=== PATIENT | male | born 1955 | race Caucasian/White ===

== ENCOUNTER 2016-03-22 18:05 | Emergency (ER) | payer MEDICARE, MEDICAID ==
[2016-03-22 20:02] VITALS: BP 117/78
--- NOTE | 2016-03-22 20:38 | UC ---
Ear Complaint HPI - HPI Summary HPI Summary: Pt is nonverbal, nonresponsive. Staff in detention noticed blood in L ear canal today, no known trauma. Deny using swabs in ear canal. - History of Current Complaint Chief Complaint: UCEar Stated Complaint: LEFT EAR INJURY Time Seen by Provider: 03/22/16 20:14 Hx Obtained From: Family/Channel Marketing Program Manager Hx From Patient Unobtainable Due To: Dementia Onset/Duration: Sudden Onset Severity Initially: Mild Severity Currently: Mild Aggravating Factors: Nothing Alleviating Factors: Nothing Associated Signs/Symptoms: Positive: Discharge - blood - Allergies/Home Medications Allergies/Adverse Reactions: Allergies Allergy/AdvReac Type Severity Reaction Status Date / Time Penicillins Allergy Unknown Verified 03/22/15 10:40 Reaction Details PMH/Surg Hx/FS Hx/Imm Hx Previously Healthy: No - CP Neurological History Of: Reports: Dementia, Seizures - Surgical History Surgical History: Yes Surgery Procedure, Year, and Place: TURP, Peg Tube - Family History Known Family History: Positive: Unknown - Social History Lives: [facility]iary Alcohol Use: None Substance Use Type: None Smoking Status (MU): Never Smoked Tobacco Review of Systems Constitutional: Negative Skin: Negative Eyes: Negative ENT: Other - blood in L ear canal Respiratory: Negative Cardiovascular: Negative Gastrointestinal: Negative Genitourinary: Negative Motor: Negative Neurovascular: Negative Musculoskeletal: Negative Neurological: Negative Psychological: Negative All Other Systems Reviewed And Are Negative: Yes Physical Exam Triage Information Reviewed: Yes Appearance: Well-Nourished Vital Signs: Initial Vital Signs Temp 98.0 F 03/22/16 19:59 Pulse 77 03/22/16 19:59 Resp 16 03/22/16 19:59 BP 117/78 03/22/16 19:59 Pulse Ox 94 03/22/16 19:59 Vital Signs Reviewed: Yes Eyes: Positive: Conjunctiva Clear ENT: Positive: Pharynx normal, TMs normal, Other: - blood in L ear canal. Negative: Nasal congestion, Nasal drainage Neck exam: Normal Neck: Positive: Supple Respiratory Exam: Normal Respiratory: Positive: Chest non-tender, Lungs clear, Normal breath sounds, No respiratory distress, No accessory muscle use Cardiovascular Exam: Normal Cardiovascular: Positive: RRR, No Murmur Neurological Exam: Other - contractures Skin Exam: Normal Ear Complaint Course/Dx - Differential Dx/Diagnosis Provider Diagnoses: L ear canal bleeding Discharge - Discharge Plan Condition: Stable Disposition: HOME Referrals: Anjelica Spencer PA [Physician Bookkeeper Receptionist] - 7 Days Additional Instructions: There was blood and a possible skin lesion in the L ear canal on exam tonight. Due to the amount of blood, I could not determine if the lesion was from injury or spontaneous. I recommend Chavez see his primary care office in 7-10 days to see if the canal has healed and to determine if Chavez needs to see an ENT.
== END 2016-03-22 20:45 | disposition home or self-care (01) ==
LOC: UCCORT 18:05
DX: H92.22 Otorrhagia, left ear (principal); F03.90 Unspecified dementia, unspecified severity, without behavioral disturbance, psychotic disturbance, mood disturbance, and anxiety; Z88.0 Allergy status to penicillin
CPT/HCPCS: 99212; G0463

== ENCOUNTER 2017-05-05 10:16 | Emergency (ER) | payer MEDICARE, MEDICAID ==
[2017-05-05 11:05] VITALS: BP 126/72
--- NOTE | 2017-05-05 11:40 | ED ---
Throat Pain/Nasal Congestion - HPI Summary HPI Summary: 61 yr old male with the complaint of drainage from the left eye over the weekend with irritation, and some redness. No other complaints. History limited due to MR - History of Current Complaint Chief Complaint: UCEye Time Seen by Provider: 05/05/17 11:10 - Allergies/Home Medications Allergies/Adverse Reactions: Allergies Allergy/AdvReac Type Severity Reaction Status Date / Time Penicillins Allergy Unknown Verified 05/05/17 10:52 Reaction Details antihistamine Allergy Unknown Uncoded 05/05/17 10:52 chlorpheniramine tpe Reaction Details PMH/Surg Hx/FS Hx/Imm Hx Neurological History: Reports: Hx Dementia, Hx Seizures - Cancer History Cancer Type, Location and Year: Prostate - Surgical History Surgery Procedure, Year, and Place: TURP, Peg Tube Infectious Disease History: No Infectious Disease History: Denies: Hx Clostridium Difficile, Hx Hepatitis, Hx Human Immunodeficiency Virus (HIV), Hx of Known/Suspected MRSA, Hx Shingles, Hx Tuberculosis, Hx Known/ Suspected VRE, Hx Known/Suspected VRSA, History Other Infectious Disease, Traveled Outside the in Last 30 Days - Family History Known Family History: Positive: Unknown - Social History Occupation: Disabled Lives: Residential Alcohol Use: None Substance Use Type: Reports: None Smoking Status (MU): Never Smoked Tobacco Review of Systems Constitutional: Negative Positive: Drainage, Erythema ENT: Negative All Other Systems Reviewed And Are Negative: Yes Physical Exam Triage Information Reviewed: Yes Vital Signs On Initial Exam: Initial Vitals Temp Pulse Resp BP Pulse Ox 99.3 F 65 20 126/72 96 05/05/17 10:57 05/05/17 10:57 05/05/17 10:57 05/05/17 10:57 05/05/17 10:57 Vital Signs Reviewed: Yes Appearance: Positive: Well-Appearing, No Pain Distress Skin: Positive: Warm, Skin Color Reflects Adequate Perfusion Head/Face: Positive: Normal Head/Face Inspection Eyes: Positive: STEVEN, Conjunctiva Inflammed - left ENT: Positive: Normal ENT inspection Neck: Positive: Nontender Respiratory/Lung Sounds: Positive: Clear to Auscultation, Breath Sounds Present Cardiovascular: Positive: RRR. Negative: Murmur Musculoskeletal: Positive: Strength/ROM Intact Neurological: Positive: Sensory/Motor Intact, Alert, Oriented to Person Place, Time, CN Intact II-III Psychiatric: Positive: Normal - Alonzo Coma Scale Best Eye Response: 4 - Spontaneous Best Motor Response: 6 - Obeys Commands Best Verbal Response: 5 - Oriented Coma Scale Total: 15 Diagnostics - Vital Signs Vital Signs Temp Pulse Resp BP Pulse Ox 05/05/17 10:57 99.3 F 65 20 126/72 96 - Laboratory Lab Statement: Any lab studies that have been ordered have been reviewed, and results considered in the medical decision making process. EENT Course/Dx - Course Course Of Treatment: 61 with conjunctivitis. Rx sulfacetamide drops. - Diagnoses Provider Diagnoses: Conjunctivitis Discharge - Discharge Plan Condition: Good Disposition: HOME Prescriptions: Sulfacetamide 10 % OPTH.VINITA* [Sulamyd 10% Opth*] 1 drop BOTH EYES Q4H #1 btl Patient Education Materials: Conjunctivitis (ED) Referrals: Anjelica Spencer PA [Primary Care Provider] -
== END 2017-05-05 11:35 | disposition home or self-care (01) ==
LOC: UCCORT 10:16
DX: H10.32 Unspecified acute conjunctivitis, left eye (principal); F03.90 Unspecified dementia, unspecified severity, without behavioral disturbance, psychotic disturbance, mood disturbance, and anxiety; R56.9 Unspecified convulsions; Z88.0 Allergy status to penicillin; Z88.8 Allergy status to other drugs, medicaments and biological substances
CPT/HCPCS: 99212; G0463

== ENCOUNTER 2018-07-30 15:29 | Emergency (ER) | payer MEDICARE, MEDICAID ==
[2018-07-30 16:41] VITALS: BP 133/73
--- NOTE | 2018-07-30 16:45 | UC ---
Elbow Pain - HPI Summary HPI Summary: 63 y/o male PMHX MR presents to the urgent brought into the urgent care by medical case worker Mrs Andrew Cochran. Mrs Cox states Pt returned form Daycare this afternoon aroun [id number] w/ abrasion/bruise in his left elbow on unknown etiology. Daycare staff told the house staff that Pt arrived this morning w/ the left elbow bruise - History of Current Complaint Chief Complaint: UCSkin Stated Complaint: LEFT ELBOW CONCERN Time Seen by Provider: 07/30/18 16:42 Hx Obtained From: Family/Adjunct History Instructor - Andrew Cochran Hx From Patient Unobtainable Due To: Other - MR Onset/Duration: Hours - possible this morning at the day care arrived home around 1500 w/ the left wlbow bruis Severity Initially: Mild Severity Currently: Mild Pain Intensity: 0 Pain Scale Used: uneable to Location Of Pain: Is Discrete @ - left elbow Aggravating Factor(s): Nothing Alleviating Factor(s): Rest Associated Signs And Symptoms: Positive: Redness - Allergies/Home Medications Allergies/Adverse Reactions: Allergies Allergy/AdvReac Type Severity Reaction Status Date / Time cephalexin [From Keflex] Allergy Unknown Verified 07/30/18 16:32 Reaction Details Penicillins Allergy Unknown Verified 07/30/18 16:32 Reaction Details antihistamine Allergy Unknown Uncoded 07/30/18 16:32 chlorpheniramine tpe Reaction Details Home Medications: Home Medications Aspirin 81 mg CHEW TAB* 81 mg PO DAILY 07/30/18 [History Confirmed 07/30/18] PMH/Surg Hx/FS Hx/Imm Hx Previously Healthy: Yes Other Psychological History: MR - Surgical History Surgical History: Yes Surgery Procedure, Year, and Place: TURP, Peg Tube - Family History Known Family History: Positive: Unknown - Socail workers states Unkown FMHX - Social History Occupation: Disabled Lives: Half-Way Alcohol Use: None Substance Use Type: None Smoking Status (MU): Never Smoked Tobacco Review of Systems All Other Systems Reviewed And Are Negative: Yes Constitutional: Positive: Negative Skin: Positive: Bruising - left elbow redness and bruise w/ a linear scratch Eyes: Positive: Negative ENT: Positive: Negative Respiratory: Positive: Negative Cardiovascular: Positive: Negative Gastrointestinal: Positive: Negative Genitourinary: Positive: Negative Motor: Positive: Negative Neurovascular: Positive: Negative Musculoskeletal: Positive: Other: - left elbow pain Neurological: Positive: Negative Psychological: Positive: Negative Is Patient Immunocompromised?: No Physical Exam Triage Information Reviewed: Yes Vital Signs: Initial Vital Signs Temp 98.5 F 07/30/18 16:33 Pulse 62 07/30/18 16:33 Resp 16 07/30/18 16:33 BP 133/73 07/30/18 16:33 Pulse Ox 100 07/30/18 16:33 Elbow Pain Course/Dx - Course Course Of Treatment: . Bone density appears decreased. No cortical disruption or suspicious trabecular irregularity to suggest fracture in the oblique lateral projection obtained. No gross abnormality of articular alignment in the oblique lateral projection obtained. Mild dorsal soft tissue swelling. No subcutaneous emphysema or conspicuous foreign body. - Differential Dx/Diagnosis Differential Diagnosis/HQI/PQRI: Abrasion, Dislocation, Fracture (Closed), Sprain, Strain, Tendonitis Provider Diagnosis: Left elbow contusion Discharge - Sign-Out/Discharge Documenting (check all that apply): Patient Departure - D/C home All imaging exams completed and their final reports reviewed: Yes - Discharge Plan Condition: Stable Disposition: HOME Prescriptions: Bacitracin OINTMENT* 1 applic TOPICAL BID #1 tube Patient Education Materials: Contusion in Adults (ED) Referrals: Anjelica Spencer PA [Primary Care Provider] - 2 Days Additional Instructions: 1-Please give PT Tylenol PO q6-8hrs prn as directed to alleviate pain and swelling. 2-Please apply ice, apply Triple antibiotic oint around scratch to prevent infection 3- Please f/u with [facility] or your PCP in 1 week is not improvement of symptoms for further evaluation and treatment. 4- Close observation on patient to make sure no other questionable bruises appear and f/u w/ his PCP 2-3 days to make sure symptoms are improving - Billing Disposition and Condition Condition: STABLE Disposition: Home
== END 2018-07-30 18:15 | disposition home or self-care (01) ==
LOC: UCCORT 15:29
DX: S50.02XA Contusion of left elbow, initial encounter (principal); Z88.0 Allergy status to penicillin; Z88.8 Allergy status to other drugs, medicaments and biological substances; Z79.82 Long term (current) use of aspirin; X58.XXXA Exposure to other specified factors, initial encounter
CPT/HCPCS: 99211; G0463

== ENCOUNTER 2018-11-05 18:02 | Emergency (ER) | payer MEDICARE, MEDICAID ==
--- NOTE | 2018-11-05 19:19 | UC ---
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 The patient has a roommate who has had an upper respiratory illness over the past few days. The caregiver states the patient had a massage with essential oils however he gets the massage weekly with the same amount and type of essential oils and has never had a problem with any allergic reaction. She notes that he has a runny nose as well and a moist cough. No fever or chills. She has not noted any rash. - History of Current Complaint Stated Complaint: EYE IRRITATION Time Seen by Provider: 11/05/18 19:05 Hx Obtained From: Family/Soil Checker Onset/Duration: Gradual Onset Timing: Constant - Both eyes are red with purulent drainage. Severity Initially: Mild Severity Currently: Mild Location of Injury: Other - No injury Aggravating Factor(s): Nothing Alleviating Factor(s): Nothing Associated Signs And Symptoms: Positive: Drainage (Purulent) - Allergies/Home Medications Allergies/Adverse Reactions: Allergies Allergy/AdvReac Type Severity Reaction Status Date / Time cephalexin [From Keflex] Allergy Unknown Verified 11/05/18 19:28 Reaction Details Penicillins Allergy Unknown Verified 11/05/18 19:28 Reaction Details antihistamine Allergy Unknown Uncoded 11/05/18 19:28 chlorpheniramine tpe Reaction Details PMH/Surg Hx/FS Hx/Imm Hx - Additional Past Medical History Additional PMH: Patient is nonverbal Previously Healthy: Yes - patient has been acting per his normal today. Cancer History: Prostate Cancer - Surgical History Surgical History: Yes Surgery Procedure, Year, and Place: TURP, Peg Tube - Family History Known Family History: Positive: Unknown - Socail workers states Unkown FMHX - Social History Alcohol Use: None Substance Use Type: None Smoking Status (MU): Never Smoked Tobacco Review of Systems All Other Systems Reviewed And Are Negative: Yes Eyes: Positive: Drainage - Yellow purulent drainage bilaterally., Eye Redness ENT: Positive: Nasal Discharge - Runny nose with clear nasal coryza. Respiratory: Positive: Cough - Moist cough. Motor: Positive: Other - Patient is normally contractured and in a wheelchair. Psychological: Positive: Other - Patient is nonverbal. Is Patient Immunocompromised?: No Physical Exam Triage Information Reviewed: Yes Appearance: Well-Appearing, No Pain Distress, Well-Nourished Vital Signs Reviewed: Yes Eyes: Positive: Conjunctiva Inflamed - Conjunctiva and sclera are injected with yellow purulent drainage bilaterally., Discharge ENT: Positive: Nasal drainage - Clear nasal coryza. Neck: Positive: Supple, Nontender, No Lymphadenopathy Respiratory: Positive: No respiratory distress, No accessory muscle use, Rhonchi - Very minimal scattered rhonchi. Cardiovascular: Positive: RRR, No Murmur, Pulses Normal, Brisk Capillary Refill Musculoskeletal: Positive: Other: - Patient normally has contractures. He has good peripheral pulses and capillary refill. Neurological: Positive: Alert Psychological: Positive: Other: - Patient is acting per his norm up until later this afternoon about 1 hour after having the massage. Eye Complaint Course/Dx - Course Course Of Treatment: This patient was acting per his norm until 1 hour after he had a massage with essential oils. I don't feel that he is having allergic reaction I think he has caught the viral upper respiratory illness that his roommate had. He has no hives or swelling. I am going to treat his conjunctivitis. I spoke with the caregiver and she will be with him most of the night and will follow up at the emergency room if he develops any fever, chills, worsening symptoms or difficulty breathing. She is agreeable to this plan of action at this time. - Differential Dx/Diagnosis Provider Diagnosis: URI (upper respiratory infection), Bilateral conjunctivitis Discharge ED - Sign-Out/Discharge Documenting (check all that apply): Patient Departure All imaging exams completed and their final reports reviewed: No Studies - Discharge Plan Condition: Fair Disposition: HOME Prescriptions: Tobramycin 0.3% OPHTH.VINITA* 1 drop BOTH EYES Q4H 7 Days #1 btl Patient Education Materials: Conjunctivitis (ED) Referrals: Anjelica Spencer PA [Primary Care Provider] - Additional Instructions: Definite recheck in the emergency room if difficulty breathing, worsening symptoms, fever or shortness of breath. Follow-up with your primary care provider if no improvement in the eye infection in 2 or 3 days. - Billing Disposition and Condition Condition: FAIR Disposition: Home
== END 2018-11-05 19:50 | disposition home or self-care (01) ==
LOC: UCCORT 18:02
DX: J06.9 Acute upper respiratory infection, unspecified (principal); H10.33 Unspecified acute conjunctivitis, bilateral; Z88.1 Allergy status to other antibiotic agents; Z88.0 Allergy status to penicillin
CPT/HCPCS: 99212; G0463

== ENCOUNTER 2019-04-19 09:38 | Emergency (ER) | payer MEDICARE, MEDICAID ==
[2019-04-19 10:57] VITALS: BP 116/76
[2019-04-19 11:13] LABS: Influenza A Molecular Negative (Negative); Influenza B Molecular Negative (Negative)
--- NOTE | 2019-04-19 11:30 | UC ---
FLU HPI - HPI Summary HPI Summary: 63-year-old male with developmental delay presents with materials and corrosion engineer from [facility] reporting low-grade fever, nasal congestion, and cough. According to the documentation sent by the [facility] RN patient was seen by his primary care provider on 04/16/2019 and diagnosed with an upper respiratory infection and recommended symptomatic treatment at that time. Patient was sent to urgent care today for testing for influenza. Fire Support Man denies any difficulty breathing , vomiting, or diarrhea. - History of Current Complaint Chief Complaint: UCGeneralIllness Stated Complaint: FLU SYMPTOMS Time Seen by Provider: 04/19/19 11:15 Hx Obtained From: Family/Fire Support Man Pain Intensity: 0 - Allergy/Home Medications Allergies/Adverse Reactions: Allergies Allergy/AdvReac Type Severity Reaction Status Date / Time cephalexin [From Keflex] Allergy Unknown Verified 04/19/19 10:57 Reaction Details Penicillins Allergy Unknown Verified 04/19/19 10:57 Reaction Details antihistamine Allergy Unknown Uncoded 04/19/19 10:57 chlorpheniramine tpe Reaction Details Home Medications: Home Medications Acetaminophen TAB* [Tylenol TAB*] 650 mg PO Q4H PRN 03/22/15 [History Confirmed 04/19/19] Acyclovir OINT 5%(NF) [Zovirax Oint 5%(NF)] 1 applic TOPICAL TID PRN 03/22/15 [ History Confirmed 04/19/19] Cetirizine* [ZyrTEC 10 MG TAB*] 10 mg PEG TUBE DAILY PRN 03/22/15 [History Confirmed 04/19/19] Chlorhexidine MW 0.12% 473ML* [Peridex Mouth Wash 0.12%] 1 % MT SEE INSTRUCTIONS 03/22/15 [History Confirmed 04/19/19] Cholecalciferol TAB* [Vitamin D TAB*] 1,000 unit PEG TUBE BID 03/22/15 [History Confirmed 04/19/19] Fluticasone NASAL SPRAY 50MCG* [Flonase NASAL SPRAY 50MCG*] 2 spray BOTH NARES DAILY 03/22/15 [History Confirmed 04/19/19] LaCOSAMide LIQ [VimPAT LIQ] 150 mg PEG TUBE BID 03/22/15 [History Confirmed ] Menthol/Zinc Oxide [Gold Marti Medicated Body Powd] 1 pow TOPICAL BID PRN [History Confirmed 04/19/19] Montelukast Sodium TAB* [Singulair 10 MG TAB*] 10 mg PEG TUBE DAILY 03/22/15 [ History Confirmed 04/19/19] Multivitamins/Minerals TAB* [Thera M Plus TAB*] 1 tab PEG TUBE DAILY 03/22/15 [ History Confirmed 04/19/19] Pseudoephedrine TAB* [Sudafed TAB*] 60 mg PO Q6H PRN 03/22/15 [History Confirmed 04/19/19] Sodium Phosphate ADULT ENEMA* [Fleet Enema*] 1 enema CO SEE INSTRUCTIONS PRN [History Confirmed 04/19/19] Vits A and D/White Pet/Lanolin [A and D First Aid Ointment] 1 applic TOPICAL SEE INSTRUCTIONS 03/22/15 [History Confirmed 04/19/19] levETIRAcetam [Keppra LIQ] 1,500 mg PEG TUBE BID 03/22/15 [History Confirmed ] Bacitracin OINTMENT* 1 applic TOPICAL BID #1 tube 07/30/18 [Rx Confirmed ] Tobramycin 0.3% OPHTH.VINITA* 1 drop BOTH EYES Q4H 7 Days #1 btl 11/05/18 [Rx Confirmed 04/19/19] Bisacodyl 10 mg SUPP [Dulcolax Supp*] 10 mg CO DAILY PRN 04/19/19 [History Confirmed 04/19/19] Carboxymethylcellulos/Glycerin [Lubricant Eye Drops/Dual- 0.5-0.9 %] 1 matthew OP DAILY 04/19/19 [History Confirmed 04/19/19] Doxazosin TAB* [Cardura TAB*] 2 mg PO BEDTIME 04/19/19 [History Confirmed ] Famotidine TAB* [Pepcid 20 MG TAB*] 20 mg .ROUTE DAILY 04/19/19 [History Confirmed 04/19/19] Omeprazole 20 mg PO DAILY 04/19/19 [History Confirmed 04/19/19] Polyethylene Glycol 3350 [Gnp Clearlax] 1 maggi PO DAILY 04/19/19 [History Confirmed 04/19/19] Triamcinolone 0.1% CREAM (NF) [Kenalog 0.1% Cream (NF)] 1 applic .SEE ORDER BID 04/19/19 [History Confirmed 04/19/19] guaiFENesin [Guaifenesin] 200 mg PO DAILY PRN 04/19/19 [History Confirmed ] PMH/Surg Hx/FS Hx/Imm Hx Cardiovascular History: Hypertension GI/ History: Gastroesophageal Reflux Neurological History: Seizures Psychological History: Other - Developmental delay - Surgical History Surgical History: Yes Surgery Procedure, Year, and Place: TURP, Peg Tube - Family History Known Family History: Positive: Unknown - Socail workers states Unkown FMHX - Social History Alcohol Use: None Substance Use Type: None Smoking Status (MU): Never Smoked Tobacco Review of Systems All Other Systems Reviewed And Are Negative: Yes Constitutional: Positive: Fever, Fatigue Eyes: Negative: Drainage, Eye Redness ENT: Positive: Nasal Discharge, Sinus Congestion Respiratory: Positive: Cough. Negative: Shortness Of Breath Gastrointestinal: Negative: Vomiting, Diarrhea Is Patient Immunocompromised?: No Physical Exam - Summary Physical Exam Summary: GENERAL APPEARANCE: Alert and cooperative adult male with developmental delay who appears to be in no acute distress. EYES: Conjunctiva clear. No drainage. EARS: External auditory canals and tympanic membranes clear, hearing grossly intact. NOSE: Mild nasal congestion. No nasal discharge. THROAT: Pharynx normal. No tonsilar inflammation, swelling, exudate, or lesions. Uvula midline. NECK: Neck supple, non-tender without lymphadenopathy. CARDIAC: Normal S1 and S2. No S3, S4 or murmurs. Rhythm is regular. There is no peripheral edema, cyanosis or pallor. Extremities are warm and well perfused. Capillary refill is less than 2 seconds. Peripheral pulses intact. LUNGS: Clear to auscultation without rales, rhonchi, wheezing or diminished breath sounds. ABDOMEN: Positive bowel sounds. Soft, nondistended, nontender. No guarding or rebound. No masses or hepatosplenomegally. MUSKULOSKELETAL: ROM intact to all extremities. No joint erythema or tenderness. Normal muscular development. Wheelchair dependent. SKIN: Skin normal color, texture and turgor with no lesions or eruptions. Triage Information Reviewed: Yes Vital Signs: Initial Vital Signs Temp 97.4 F 04/19/19 10:55 Pulse 64 04/19/19 10:55 Resp 16 04/19/19 10:55 BP 116/76 04/19/19 10:55 Pulse Ox 94 04/19/19 10:55 Vital Signs Reviewed: Yes Flu Course/Dx - Course Course Of Treatment: 63-year-old male with developmental delay presents with materials and corrosion engineer from [facility] reporting low-grade fever, nasal congestion, and cough. According to the documentation sent by the [facility] RN patient was seen by his primary care provider on 04/16/2019 and diagnosed with an upper respiratory infection and recommended symptomatic treatment at that time. Patient was sent to urgent care today for testing for influenza. Fire Support Man denies any difficulty breathing , vomiting, or diarrhea. Afebrile. Vital signs stable. Patient was alert and cooperative in no acute distress with mild nasal congestion, normal TMs, normal pharynx, no cervical lymphadenopathy, clear bilateral breath sounds, and otherwise unremarkable exam. Rapid flu test was negative. Reviewed results with the materials and corrosion engineer. Recommending continued symptomatic treatment for a viral upper respiratory infection. He is to follow-up with his primary care provider in 5-7 days if symptoms are not improving. Anticipatory guidance and warning symptoms requiring immediate evaluation the emergency room I reviewed with the materials and corrosion engineer. Verbalizes understanding and agrees with plan of care. - Differential Dx/Diagnosis Differential Diagnosis/HQI/PQRI: Bronchitis, Influenza, Pneumonia, Upper Respiratory Infection Provider Diagnosis: Viral URI with cough Discharge ED - Sign-Out/Discharge Documenting (check all that apply): Patient Departure All imaging exams completed and their final reports reviewed: No Studies - Discharge Plan Condition: Stable Disposition: HOME Patient Education Materials: Upper Respiratory Infection (ED) Referrals: Anjelica Spencer PA [Primary Care Provider] - 5 Days (If no improvement in symptoms.) Additional Instructions: The rapid flu test performed in the clinic today was negative. Your history and exam are consistent with a viral upper respiratory infection. Viral infections do not respond to antibiotics and are limited to the treatment of symptoms. Viral infections typically run their course in 7-10 days. Drink plenty of fluids to avoid dehydration especially if you are running any fever. Continue using the guiafenesin as directed as needed for cough. Continue with Sudafed as directed for the congestion. Take over the counter acetaminophen (Tylenol) according to directions as needed for pain or fever. Follow up with your primary care provider in 5-7 days if symptoms persist. Seek immediate medical attention in the emergency room if you have fever greater than 100.5 F despite taking acetaminophen or ibuprofen, have chest pain , difficulty breathing, are unable to swallow, or have any worsening of symptoms. - Billing Disposition and Condition Condition: STABLE Disposition: Home
== END 2019-04-19 11:53 | disposition home or self-care (01) ==
LOC: UCCORT 09:38
DX: J06.9 Acute upper respiratory infection, unspecified (principal); R05 Cough; I10 Essential (primary) hypertension; K21.9 Gastro-esophageal reflux disease without esophagitis; Z88.1 Allergy status to other antibiotic agents; Z88.0 Allergy status to penicillin; Z88.8 Allergy status to other drugs, medicaments and biological substances; Z79.899 Other long term (current) drug therapy
CPT/HCPCS: 99211; G0463